=== PATIENT | male | born 1995 | race Hispanic/Latino ===

== ENCOUNTER 2019-04-16 11:37 | Emergency (ER) | payer BC, OTHER ==
--- NOTE | 2019-04-16 14:36 | ER ---
Nurse's Notes [facility] Name: Mike Cook Age: 23 yrs Sex: Male : 1995 Arrival Date: 04/16/2019 Time: 11:42 Bed 12 Private MD: Diagnosis: Acute pharyngitis Presentation: 04/16 11:45 Presenting complaint: Patient states: cough, congestion, had family member with strep. la1 Transition of care: patient was not received from another setting of care. Onset of symptoms was April 16, 2019. Risk Assessment: Do you want to hurt yourself or someone else? Patient reports no desire to harm self or others. Initial Sepsis Screen: Does the patient meet any 2 criteria? No. Patient's initial sepsis screen is negative. Does the patient have a suspected source of infection? No. Patient's initial sepsis screen is negative. Care prior to arrival: None. 11:45 Method Of Arrival: Ambulatory la1 11:45 Acuity: JUAN 4 la1 Historical: - Allergies: 11:45 No Known Allergies; la1 - PMHx: 11:45 None; la1 - Immunization history:: Adult Immunizations up to date. - Social history:: Smoking status: Patient/guardian denies using tobacco. - Ebola Screening: : No symptoms or risks identified at this time. - Family history:: not pertinent. Screenin:46 Abuse screen: Denies threats or abuse. Denies injuries from another. Nutritional rv screening: No deficits noted. Tuberculosis screening: No symptoms or risk factors identified. Fall Risk None identified. Assessment: 13:46 General: Appears in no apparent distress. comfortable, Behavior is calm, cooperative. rv Pain: Denies pain. Neuro: Level of Consciousness is awake, alert, obeys commands, Oriented to person, place, time, situation. EENT: Throat is clear. Derm: Skin is intact. Vital Signs: 11:53 Pulse 98; Resp 18; Temp 99.1; Pulse Ox 100% on R/A; la1 11:53 BP 106 / 77; la1 14:36 BP 112 / 76; Pulse 91; Resp 16; Pulse Ox 100% on R/A; rv ED Course: 11:42 Patient arrived in ED. as 11:45 Arm band placed on right wrist. la1 11:46 Triage completed. la1 13:32 Obie Balderrama MD is Attending Physician. [facility] 13:32 Dago Figueroa, RN is Primary Nurse. rv 13:46 Patient has correct armband on for positive identification. Bed in low position. Call rv light in reach. Side rails up X 1. Pulse ox on. 14:36 No provider procedures requiring assistance completed. Patient did not have IV access rv during this emergency room visit. Administered Medications: 14:47 Drug: Zithromax 500 mg Route: PO; rv 14:47 Follow up: Response: Medication administered at discharge. rv Outcome: 14:35 Discharge ordered by . [facility] 14:36 Discharged to home ambulatory. rv 14:36 Condition: good 14:36 Discharge instructions given to patient, Instructed on discharge instructions, follow up and referral plans. medication usage, Demonstrated understanding of instructions, follow-up care, medications, Prescriptions given X 2. 14:48 Patient left the ED. rv Signatures: Obie Balderrama MD MD cha Martinez, Amelia as Attema, Lee RN RN la1 Dago Figueroa, RADHA RN rv
--- NOTE | 2019-04-16 14:36 | EDPHYS ---
Physician Documentation [facility] Name: Mike Cook Age: 23 yrs Sex: Male : 1995 Arrival Date: 04/16/2019 Time: 11:42 Bed 12 Private MD: ED Physician Obie Balderrama HPI: 04/16 14:32 This 23 yrs old Male presents to ER via Ambulatory with complaints of Cold candace Symptoms. 14:32 sore throat. Onset: The symptoms/episode began/occurred 2 day(s) ago. Severity of candace symptoms: At their worst the symptoms were. The patient has experienced similar episodes in the past, a few times. Historical: - Allergies: 11:45 No Known Allergies; la1 - PMHx: 11:45 None; la1 - Immunization history:: Adult Immunizations up to date. - Social history:: Smoking status: Patient/guardian denies using tobacco. - Ebola Screening: : No symptoms or risks identified at this time. - Family history:: not pertinent. ROS: 14:32 Constitutional: Negative for fever, chills, and weight loss, Eyes: Negative for injury, candace pain, redness, and discharge, Neck: Negative for injury, pain, and swelling, Cardiovascular: Negative for chest pain, palpitations, and edema, Respiratory: Negative for shortness of breath, cough, wheezing, and pleuritic chest pain, Abdomen/GI: Negative for abdominal pain, nausea, vomiting, diarrhea, and constipation, Back: Negative for injury and pain, : Negative for injury, bleeding, discharge, and swelling, MS/Extremity: Negative for injury and deformity, Skin: Negative for injury, rash, and discoloration, Neuro: Negative for headache, weakness, numbness, tingling, and seizure, Psych: Negative for depression, anxiety, suicide ideation, homicidal ideation, and hallucinations, Allergy/Immunology: Negative for hives, rash, and allergies, Endocrine: Negative for neck swelling, polydipsia, polyuria, polyphagia, and marked weight changes, Hematologic/Lymphatic: Negative for swollen nodes, abnormal bleeding, and unusual bruising. 14:32 ENT: Positive for difficulty swallowing. Exam: 14:32 Constitutional: This is a well developed, well nourished patient who is awake, alert, candace and in no acute distress. Head/Face: Normocephalic, atraumatic. Eyes: Pupils equal round and reactive to light, extra-ocular motions intact. Lids and lashes normal. Conjunctiva and sclera are non-icteric and not injected. Cornea within normal limits. Periorbital areas with no swelling, redness, or edema. Neck: Trachea midline, no thyromegaly or masses palpated, and no cervical lymphadenopathy. Supple, full range of motion without nuchal rigidity, or vertebral point tenderness. No Meningismus. Chest/axilla: Normal chest wall appearance and motion. Nontender with no deformity. No lesions are appreciated. Cardiovascular: Regular rate and rhythm with a normal S1 and S2. No gallops, murmurs, or rubs. Normal PMI, no JVD. No pulse deficits. Respiratory: Lungs have equal breath sounds bilaterally, clear to auscultation and percussion. No rales, rhonchi or wheezes noted. No increased work of breathing, no retractions or nasal flaring. Abdomen/GI: Soft, non-tender, with normal bowel sounds. No distension or tympany. No guarding or rebound. No evidence of tenderness throughout. Back: No spinal tenderness. No costovertebral tenderness. Full range of motion. Male : Normal genitalia with no discharge or lesions. Skin: Warm, dry with normal turgor. Normal color with no rashes, no lesions, and no evidence of cellulitis. MS/ Extremity: Pulses equal, no cyanosis. Neurovascular intact. Full, normal range of motion. Neuro: Awake and alert, GCS 15, oriented to person, place, time, and situation. Cranial nerves II-XII grossly intact. Motor strength 5/5 in all extremities. Sensory grossly intact. Cerebellar exam normal. Normal gait. Psych: Awake, alert, with orientation to person, place and time. Behavior, mood, and affect are within normal limits. 14:32 ENT: Posterior pharynx: erythema, that is mild. Vital Signs: 11:53 Pulse 98; Resp 18; Temp 99.1; Pulse Ox 100% on R/A; la1 11:53 BP 106 / 77; la1 14:36 BP 112 / 76; Pulse 91; Resp 16; Pulse Ox 100% on R/A; rv MDM: 13:32 Patient medically screened. [facility] 14:34 Data reviewed: vital signs, nurses notes, lab test result(s). [facility] 04/16 11:47 Order name: Strep la1 04/16 12:28 Order name: Throat Culture EDMS Administered Medications: 14:47 Drug: Zithromax 500 mg Route: PO; rv 14:47 Follow up: Response: Medication administered at discharge. rv Disposition: 04/16/19 14:35 Discharged to Home. Impression: Acute pharyngitis. - Condition is Stable. - Discharge Instructions: Pharyngitis, Pharyngitis, [id number], Sore Throat, [id number]. - Prescriptions for Angella- D 12 Hour 60-120 mg Oral Tablet Sustained Release 12 hr - take 1 tablet by ORAL route every 12 hours As needed; 20 tablet. Zithromax Z- Wes 250 mg Oral Tablet - take 1 tablet by ORAL route as directed for 5 days Day 1 - take two (2) tablets one time. Day 2, 3, 4 , 5 take one (1) tablet once daily.; 6 tablet. - Medication Reconciliation Form, Thank You Letter, Antibiotic Education, Prescription Opioid Use form. - Follow up: Private Physician; When: 2 - 3 days; Reason: Recheck today's complaints, Continuance of care, Re-evaluation by your physician. - Problem is new. - Symptoms have improved. Signatures: Dispatcher [employer] EDWA Obie Balderrama MD MD cha Attema, Lee, RN RN la1 Dago Figueroa RN RN rv Corrections: (The following items were deleted from the chart) 14:48 14:35 04/16/2019 14:35 Discharged to Home. Impression: Acute pharyngitis. Condition is rv Stable. Forms are Medication Reconciliation Form, Thank You Letter, Antibiotic Education, Prescription Opioid Use. Follow up: Private Physician; When: 2 - 3 days; Reason: Recheck today's complaints, Continuance of care, Re-evaluation by your physician. Problem is new. Symptoms have improved. [facility]
[2019-04-16] MEDS ORDERED: AZITHROMYCIN 250 MG TAB ONE (14:40)
[2019-04-16 18:02] VITALS: TEMP 99.1; O2SAT 100
[2019-04-16 18:06] VITALS: BP 112/76
== END 2019-04-16 14:48 | disposition home or self-care (01) ==
LOC: ER 11:37
DX: J02.9 Acute pharyngitis, unspecified (principal)
CPT/HCPCS: 87070; 87081; 99283

== ENCOUNTER 2019-09-28 10:15 | Emergency (ER) | payer BC, MEDICAID, OTHER ==
--- NOTE | 2019-09-28 12:17 | EDPHYS ---
Physician Documentation [facility] Name: Mike Cook Age: 24 yrs Sex: Male : 1995 Arrival Date: 09/28/2019 Time: 10:19 Bed 15 Private MD: Flory Blanco ED Physician Obie Balderrama HPI: 09/27 12:05 This 24 yrs old Male presents to ER via Ambulatory with complaints of Cough, jmm Congestion, Sore Throat. 12:05 The patient presents with sore throat. Onset: The symptoms/episode began/occurred jmm gradually, 1.5 week(s) ago. Modifying factors: The symptoms are alleviated by nothing, the symptoms are aggravated by nothing. Associated signs and symptoms: Pertinent negatives chest pain, chills, cough, fever, nausea, shortness of breath. The patient has experienced similar episodes in the past. Historical: - Allergies: 10:33 No Known Allergies; ss - Home Meds: 10:33 None [Active]; ss - PMHx: 10:33 autism; ss - PSHx: 10:33 Tonsillectomy; Adenoids; ss - Immunization history:: Adult Immunizations unknown. - Social history:: Smoking status: Patient denies any tobacco usage or history of. ROS: 12:05 Constitutional: Negative for fever, chills, and weight loss, Cardiovascular: Negative jmm for chest pain, palpitations, and edema, Respiratory: Negative for shortness of breath, cough, wheezing, and pleuritic chest pain. 12:05 ENT: Positive for sore throat. 12:05 Respiratory: Negative for cough. 12:05 All other systems are negative. Exam: 12:05 Constitutional: This is a well developed, well nourished patient who is awake, alert, jmm and in no acute distress. Head/Face: atraumatic. Eyes: EOMI, no conjunctival erythema appreciated 12:05 Neck: Trachea midline, Supple Chest/axilla: Normal chest wall appearance and motion. Cardiovascular: Regular rate and rhythm. No edema appreciated 12:05 Abdomen/GI: Non distended, soft Back: Normal ROM Skin: General appearance color normal MS/ Extremity: Moves all extremities, no obvious deformities appreciated, no edema noted to the lower extremities Neuro: Awake and alert, normal gait Psych: Behavior is normal, Mood is normal, Patient is cooperative and pleasant 12:05 ENT: Posterior pharynx: erythema, that is mild. 12:05 Respiratory: the patient does not display signs of respiratory distress, Respirations: normal, Breath sounds: are clear throughout. Vital Signs: 10:33 BP 113 / 75; Pulse 97; Resp 16; Temp 98.8(TE); Pulse Ox 97% on R/A; Weight 122.47 kg; ss Height 5 ft. 11 in. (180.34 cm); Pain 4/10; 10:33 Body Mass Index 37.66 (122.47 kg, 180.34 cm) ss MDM: 10:[address] [facility] 12:16 Data reviewed: vital signs, nurses notes. Counseling: I had a detailed discussion with connor the patient and/or guardian regarding: the historical points, exam findings, and any diagnostic results supporting the discharge/admit diagnosis, lab results, the need for outpatient follow up, to return to the emergency department if symptoms worsen or persist or if there are any questions or concerns that arise at home. ED course: Patient is alert and non toxic in appearance in the ED. Patient is advised to follow up with pcp and otherwise given strict return precautions. Patient understood and agrees with the plan of care. . 09/27 11:18 Order name: Strep; Complete Time: 12:16 [facility] 09/27 12:16 Order name: Throat Culture EDSD Administered Medications: No medications were administered Disposition: 16:02 Co-signature as Attending Physician, Obie Balderrama MD I agree with the assessment and candace plan of care. Disposition: 09/28/19 12:17 Discharged to Home. Impression: Acute pharyngitis. - Condition is Stable. - Discharge Instructions: Pharyngitis. - Prescriptions for Amoxicillin 875 mg Oral Tablet - take 1 tablet by ORAL route every 12 hours for 10 days; 20 tablet. - Medication Reconciliation Form, Thank You Letter, Antibiotic Education, Prescription Opioid Use, Work release form form. - Follow up: Flory Blanco MD; When: 2 - 3 days; Reason: Recheck today's complaints, Continuance of care, Re-evaluation by your physician. Signatures: Dispatcher [employer] EDObie Rivas MD MD cha Mickail, Joel, PA PA Nel Hernandez RN RN ss Caba, Lolis, RN RN tw2 Corrections: (The following items were deleted from the chart) 12:24 12:17 09/28/2019 12:17 Discharged to Home. Impression: Acute pharyngitis. Condition is tw2 Stable. Forms are Medication Reconciliation Form, Thank You Letter, Antibiotic Education, Prescription Opioid Use. Follow up: Flory Blanco; When: 2 - 3 days; Reason: Recheck today's complaints, Continuance of care, Re-evaluation by your physician. connor
--- NOTE | 2019-09-28 12:17 | ER ---
Nurse's Notes [facility] Name: Mike Cook Age: 24 yrs Sex: Male : 1995 Arrival Date: 09/28/2019 Time: 10:19 Bed 15 Private MD: Flory Blanco Diagnosis: Acute pharyngitis Presentation: 09/27 10:31 Chief complaint: Patient states: sore throat x 1 week. Became worse suddenly yesterday. ss Denies fever. Reports slight cough just to clear throat. Coronavirus screen: Proceed with normal triage. Patient reports a cough. Patient denies shortness of breath or difficulty breathing. Patient denies measured and/or subjective temperature greater than 100.4F prior to today's visit. Patient denies travel on a cruise ship or to a country the [facility] currently lists as an affected area. Patient denies contact with known and/or suspected case of COVID-19. Ebola Screen: Patient denies exposure to infectious person. Patient denies travel to an Ebola-affected area in the 21 days before illness onset. Initial Sepsis Screen: Does the patient meet any 2 criteria? No. Patient's initial sepsis screen is negative. Does the patient have a suspected source of infection? No. Patient's initial sepsis screen is negative. Risk Assessment: Do you want to hurt yourself or someone else? Patient reports no desire to harm self or others. Onset of symptoms was September 21, 2019. 10:31 Method Of Arrival: Ambulatory ss 10:31 Acuity: JUAN 4 ss Historical: - Allergies: 10:33 No Known Allergies; ss - Home Meds: 10:33 None [Active]; ss - PMHx: 10:33 autism; ss - PSHx: 10:33 Tonsillectomy; Adenoids; ss - Immunization history:: Adult Immunizations unknown. - Social history:: Smoking status: Patient denies any tobacco usage or history of. Screenin:01 Abuse screen: Denies threats or abuse. Denies injuries from another. Nutritional ss screening: No deficits noted. Tuberculosis screening: Never had TB. Fall Risk None identified. Assessment: 11:01 General: Appears in no apparent distress. comfortable, Behavior is calm, cooperative, ss Denies fever, feeling ill, fatigue, chills. Pain: Complains of pain in throat Pain currently is 4 out of 10 on a pain scale. Quality of pain is described as sore Is continuous. Neuro: Level of Consciousness is awake, alert, obeys commands, Oriented to person, place, time, situation, Denies headache. Cardiovascular: Capillary refill < 3 seconds is brisk in bilateral fingers Patient's skin is warm and dry. Respiratory: Airway is patent Respiratory effort is even, unlabored, Respiratory pattern is regular, symmetrical, Breath sounds are clear bilaterally. GI: Patient currently denies diarrhea, nausea, vomiting. : No signs and/or symptoms were reported regarding the genitourinary system. EENT: Nares are clear Oral mucosa is moist. Throat is clear is reddened. Derm: Skin is intact, is healthy with good turgor, Skin is dry, Skin is pink, warm \T\ dry. normal. Musculoskeletal: Circulation, motion, and sensation intact. Range of motion: intact in all extremities, Swelling absent. 12:24 Reassessment: Patient appears in no apparent distress at this time. No changes from tw2 previously documented assessment. Patient and/or family updated on plan of care and expected duration. Pain level reassessed. Patient is alert, oriented x 3, equal unlabored respirations, skin warm/dry/pink. Vital Signs: 10:33 BP 113 / 75; Pulse 97; Resp 16; Temp 98.8(TE); Pulse Ox 97% on R/A; Weight 122.47 kg; ss Height 5 ft. 11 in. (180.34 cm); Pain 4/10; 10:33 Body Mass Index 37.66 (122.47 kg, 180.34 cm) ED Course: 10:19 Patient arrived in ED. mr 10:19 Flory Blanco MD is Private Physician. mr 10:25 [facility] jmm 10:25 Obie Balderrama MD is Attending Physician. jmm 10:32 Triage completed. ss 10:33 Arm band placed on right wrist. ss 11:00 Nel Chilel RN is Primary Nurse. ss 11:01 Patient has correct armband on for positive identification. Bed in low position. Call ss light in reach. 11:42 Strep Sent. ss 11:57 Primary Nurse role handed off by Nel Chilel RN tw2 11:57 Caba, Lolis, RN is Primary Nurse. tw2 12:17 Flory Blanco MD is Referral Physician. [facility] 12:24 No provider procedures requiring assistance completed. Patient did not have IV access tw2 during this emergency room visit. Administered Medications: No medications were administered Outcome: 12:17 Discharge ordered by . jm 12:24 Discharged to home ambulatory, with family. tw2 12:24 Condition: stable 12:24 Discharge instructions given to patient, family, Instructed on discharge instructions, follow up and referral plans. medication usage, Demonstrated understanding of instructions, follow-up care, medications, Prescriptions given X 1. 12:24 Patient left the ED. tw2 Signatures: Dalton Ruiz PA PA jmm Rivera, Mary mr Nel Chilel, RADHA RN Lolis Caba RN RN tw2
[2019-09-28 12:34] VITALS: BP 113/75; TEMP 98.8; O2SAT 97
== END 2019-09-28 12:24 | disposition home or self-care (01) ==
LOC: ER 10:15
DX: J02.9 Acute pharyngitis, unspecified (principal); F84.0 Autistic disorder
CPT/HCPCS: 87070; 87081; 99283

== ENCOUNTER 2019-10-30 22:45 | Emergency (ER) | payer MEDICAID, OTHER ==
[2019-10-30] MEDS ORDERED: DIPHENHYDRAMINE 25 MG TAB/CAP ONE (23:50)
[2019-10-30] MEDS ORDERED: TETANUS & DIPHTHERIA TOX,ADULT 0.5 ML VIAL ONE (23:50)
[2019-10-30] MEDS ORDERED: KETOROLAC 30 MG/ML INJ ONE (23:50)
--- NOTE | 2019-10-31 00:23 | ER ---
Nurse's Notes [facility] Name: Mike Cook Age: 24 yrs Sex: Male : 1995 Arrival Date: 10/30/2019 Time: 22:49 Bed 15 Private MD: Diagnosis: Insect bite (nonvenomous), left foot;Insect bite (nonvenomous), left lower leg-calf;Insect bite (nonvenomous) of left forearm;Insect bite (nonvenomous) of right forearm Presentation: 10/29 22:55 Chief complaint: Parent and/or Guardian states: Hes got some reddness and swelling to sg the top side of his left foot, he also has some red bumps, look like insect bites to the left arm and a bump on the back of the left leg lower calf area, pt denies fever, denies a visual of what might have bitten him per the pts mother. Coronavirus screen: Proceed with normal triage. Ebola Screen: Patient negative for fever greater than or equal to 101.5 degrees Fahrenheit, and additional compatible Ebola Virus Disease symptoms Patient denies exposure to infectious person. Patient denies travel to an Ebola-affected area in the 21 days before illness onset. No symptoms or risks identified at this time. Initial Sepsis Screen: Does the patient meet any 2 criteria? HR > 90 bpm. Does the patient have a suspected source of infection? Yes: Skin breakdown/wound. Risk Assessment: Do you want to hurt yourself or someone else? Patient reports no desire to harm self or others. Onset of symptoms was October 30, 2019. Care prior to arrival: None. 22:55 Method Of Arrival: Ambulatory 22:55 Acuity: JUAN 4 sg Triage Assessment: 23:00 Injury Description: Bite sustained to left foot caused by an unknown animal, is rr5 superficial. Historical: - Allergies: 22:58 No Known Allergies; sg - PMHx: 22:58 Autism; sg - PSHx: 22:58 Tonsillectomy; Adenoids; sg - Immunization history:: Adult Immunizations up to date. - Social history:: Smoking status: Patient denies any tobacco usage or history of. Screenin:00 Abuse screen: Denies threats or abuse. Denies injuries from another. Nutritional rr5 screening: No deficits noted. Tuberculosis screening: No symptoms or risk factors identified. Fall Risk None identified. Total Strickland Fall Scale indicates No Risk (0-24 pts). Assessment: 23:00 General: Appears in no apparent distress. comfortable, Behavior is calm, cooperative, rr5 appropriate for age. 23:00 Pain: Complains of pain in left foot Pain does not radiate. Pain currently is 9 out of rr5 10 on a pain scale. Quality of pain is described as aching, Pain began gradually, Is intermittent. Neuro: Level of Consciousness is awake, alert, obeys commands, Oriented to person, place, time, situation, Appropriate for age. Cardiovascular: Capillary refill < 3 seconds Patient's skin is warm and dry. Respiratory: Airway is patent Respiratory effort is even, unlabored, Respiratory pattern is regular, symmetrical. GI: No signs and/or symptoms were reported involving the gastrointestinal system. : No signs and/or symptoms were reported regarding the genitourinary system. EENT: No signs and/or symptoms were reported regarding the EENT system. Derm: Skin is intact, is healthy with good turgor, Skin is pink, warm \T\ dry. Skin temperature is warm Rash noted that is itchy, red, raised, urticaria, on left foot redness on left calf, bilateral forearm. Musculoskeletal: Swelling present in left foot. 10/30 00:00 Reassessment: Patient appears in no apparent distress at this time. No changes from rr5 previously documented assessment. Patient and/or family updated on plan of care and expected duration. Pain level reassessed. 00:31 Reassessment: Patient appears in no apparent distress at this time. Patient is alert, rr5 oriented x 3, equal unlabored respirations, skin warm/dry/pink. discharge instruction given and explained without complaints made. Vital Signs: 10/29 22:55 BP 142 / 88; Pulse 107; Resp 18; Temp 98.8; Pulse Ox 100% on R/A; Pain 0/10; sg 23:40 BP 109 / 78; Pulse 95; Resp 19; Pulse Ox 99% ; Pain 9/10; rr5 10/30 00:31 BP 121 / 75; Pulse 85; Resp 16; Pulse Ox 99% ; rr5 ED Course: 10/29 22:49 Patient arrived in ED. bp1 22:55 Arm band placed on. sg 22:57 Triage completed. sg 22:59 Sheldon Ricci NP is PHCP. pm1 22:59 Venancio Hobbs MD is Attending Physician. pm1 23:04 Antione Lockhart, RN is Primary Nurse. rr5 23:59 Foot Left 3 View XRAY In Process Unspecified. EDMS 10/30 00:05 Patient has correct armband on for positive identification. Bed in low position. Call rr5 light in reach. Adult w/ patient. 00:31 No provider procedures requiring assistance completed. Patient did not have IV access rr5 during this emergency room visit. Administered Medications: 10/29 23:50 Drug: Benadryl 25 mg Route: PO; rr5 10/30 00:32 Follow up: Response: No adverse reaction rr5 10/29 23:50 Drug: TORadol 60 mg Route: IM; Site: right gluteus; rr5 10/30 00:32 Follow up: Response: No adverse reaction rr5 10/29 23:51 Drug: Tetanus-Diphtheria Toxoid Adult 0.5 ml {Prompt Care Rn: One[employer]All. Exp: rr5 07/06/2021. Lot #: [id number]. } Route: IM; Site: left deltoid; 10/30 00:32 Follow up: Response: No adverse reaction rr5 Outcome: 00:22 Discharge ordered by MD. pm1 00:31 Discharged to home ambulatory, with family. rr5 00:31 Condition: stable 00:31 Discharge instructions given to patient, family, Instructed on discharge instructions, follow up and referral plans. medication usage, Demonstrated understanding of instructions, follow-up care, medications, Prescriptions given X 3. 00:34 Patient left the ED. rr5 Signatures: Dispatcher [employer] EDKY Jermaine Alvarado RN RN Sheldon Ricci, PUPIL PERSONNEL SERVICES DIRECTOR PUPIL PERSONNEL SERVICES DIRECTOR pm1 Antione Lockhart, RN RN rr5 [facility] Corrections: (The following items were deleted from the chart) 00:35 10/29 23:00 Derm: Skin is intact, is healthy with good turgor, Skin is pink, warm \T\ rr5 dry. Skin temperature is warm Rash noted that is itchy, red, raised, urticaria, on left foot rr5
--- NOTE | 2019-10-31 00:23 | EDPHYS ---
Physician Documentation [facility] Name: Mike Cook Age: 24 yrs Sex: Male : 1995 Arrival Date: 10/30/2019 Time: 22:49 Bed 15 Private MD: ED Physician Venancio Hobbs HPI: 10/29 23:26 This 24 yrs old Male presents to ER via Ambulatory with complaints of Left pm1 foot pain. 23:26 The patient presents with swelling. The complaints affect the dorsum of left foot. pm1 Context: The problem was sustained at home, resulted from an unknown cause, possible insect bites, the patient can fully bear weight, the patient is able to ambulate, Problem is a result from a previous injury: No. Onset: The symptoms/episode began/occurred last night. Modifying factors: The symptoms are alleviated by nothing. the symptoms are aggravated by movement. Associated signs and symptoms: The patient has no apparent associated signs or symptoms, Pertinent negatives fever. Treatment prior to arrival includes: no previous treatment. Severity of symptoms: in the emergency department the symptoms are unchanged. The patient has not experienced similar symptoms in the past. patient with bites to bilateral arms and left calf from last night. Bites on left foot feels painful but the other bites are itchy.. 23:26 Patient reports onset of pain after bowling. Patient uncertain of injury. History of pm1 autism. Historical: - Allergies: 22:58 No Known Allergies; sg - PMHx: 22:58 Autism; sg - PSHx: 22:58 Tonsillectomy; Adenoids; sg - Immunization history:: Adult Immunizations up to date. - Social history:: Smoking status: Patient denies any tobacco usage or history of. ROS: 23:29 Constitutional: Negative for fever, chills, and weight loss, Cardiovascular: Negative pm1 for chest pain, palpitations, and edema, Respiratory: Negative for shortness of breath, cough, wheezing, and pleuritic chest pain, Abdomen/GI: Negative for abdominal pain, nausea, vomiting, diarrhea, and constipation, Back: Negative for injury and pain. 23:29 Neuro: Negative for headache, weakness, numbness, tingling, and seizure. 23:29 MS/extremity: Positive for pain, swelling, of the dorsum of left foot, Negative for decreased range of motion, deformity. 23:29 Skin: Positive for wheals to left and right forearm, left calf, Negative for abscesses, cellulitis. Exam: 23:29 Constitutional: This is a well developed, well nourished patient who is awake, alert, pm1 and in no acute distress. Head/Face: Normocephalic, atraumatic. 23:29 Cardiovascular: Exam negative for acute changes, Rate: normal, Rhythm: regular, Pulses: no pulse deficits are appreciated. 23:29 Respiratory: Exam negative for acute changes, respiratory distress, shortness of breath. 23:29 Musculoskeletal/extremity: Extremities: grossly normal except: noted in the dorsum of left foot: swelling, tenderness, There is no evidence of abscess or cellulitis, ROM: intact in all extremities, Circulation is intact in all extremities. 23:29 Skin: Appearance: normal except for affected area, abscess, not appreciated, cellulitis, is not appreciated, lesion(s), probable a wheal is noted, located on the bilateral forearms, left calf. Vital Signs: 22:55 BP 142 / 88; Pulse 107; Resp 18; Temp 98.8; Pulse Ox 100% on R/A; Pain 0/10; sg 23:40 BP 109 / 78; Pulse 95; Resp 19; Pulse Ox 99% ; Pain 9/10; rr5 10/30 00:31 BP 121 / 75; Pulse 85; Resp 16; Pulse Ox 99% ; rr5 MDM: 10/29 22:59 Patient medically screened. pm1 10/30 00:20 ED course: X-ray interpretation by me: Negative left foot for fracture or dislocation. pm1 Swelling to dorsum of foot present. 00:20 Data reviewed: vital signs. Data interpreted: Pulse oximetry: on room air is 99 %. pm1 Interpretation: normal. 00:20 Counseling: I had a detailed discussion with the patient and/or guardian regarding: the pm1 historical points, exam findings, and any diagnostic results supporting the discharge/admit diagnosis, radiology results, the need for outpatient follow up, to return to the emergency department if symptoms worsen or persist or if there are any questions or concerns that arise at home. 10/29 23:26 Order name: Foot Left 3 View XRAY pm1 Administered Medications: 10/29 23:50 Drug: Benadryl 25 mg Route: PO; rr5 10/30 00:32 Follow up: Response: No adverse reaction rr5 10/29 23:50 Drug: TORadol 60 mg Route: IM; Site: right gluteus; rr5 10/30 00:32 Follow up: Response: No adverse reaction rr5 10/29 23:51 Drug: Tetanus-Diphtheria Toxoid Adult 0.5 ml {Pay Per Click Strategist: [employer]. Exp: rr5 07/06/2021. Lot #: [id number]. } Route: IM; Site: left deltoid; 10/30 00:32 Follow up: Response: No adverse reaction rr5 Disposition: 05:31 Co-signature as Attending Physician, Venancio Hobbs MD. 7 Disposition: 10/31/19 00:22 Discharged to Home. Impression: Insect bite (nonvenomous), left foot, Insect bite (nonvenomous), left lower leg - calf, Insect bite (nonvenomous) of left forearm, Insect bite (nonvenomous) of right forearm. - Condition is Stable. - Discharge Instructions: Insect Bite. - Prescriptions for Bactroban 2 % Topical Ointment - Apply to affected area 1 application by TOPICAL route every 12 hours; 30 gram. Bactrim DS 800- 160 mg Oral Tablet - take 1 tablet by ORAL route every 12 hours for 10 days; 20 tablet. Benadryl 25 mg Oral Capsule - take 1 capsule by ORAL route every 6 hours As needed; 30 tablet. - Medication Reconciliation Form, Thank You Letter, Antibiotic Education, Prescription Opioid Use form. - Follow up: Emergency Department; When: As needed; Reason: Worsening of condition. Follow up: Private Physician; When: 2 - 3 days; Reason: Recheck today's complaints, Continuance of care, Re-evaluation by your physician. - Problem is new. - Symptoms have improved. Signatures: Dispatcher [employer] EDMS Jermaine Alvarado RN RN sg Sheldon Ricci, [facility] ADMINISTRATOR pm1 Antione Lockhart RN RN rr5 Venancio Hobbs MD MD 7 Corrections: (The following items were deleted from the chart) 00:34 00:22 10/31/2019 00:22 Discharged to Home. Impression: Insect bite (nonvenomous), left rr5 foot; Insect bite (nonvenomous), left lower leg - calf; Insect bite (nonvenomous) of left forearm; Insect bite (nonvenomous) of right forearm. Condition is Stable. Forms are Medication Reconciliation Form, Thank You Letter, Antibiotic Education, Prescription Opioid Use. Follow up: Emergency Department; When: As needed; Reason: Worsening of condition. Follow up: Private Physician; When: 2 - 3 days; Reason: Recheck today's complaints, Continuance of care, Re-evaluation by your physician. Problem is new. Symptoms have improved. pm1
[2019-10-31 00:40] VITALS: TEMP 98.8
[2019-10-31 00:41] VITALS: O2SAT 99
[2019-10-31 00:43] VITALS: BP 121/75
--- NOTE | 2019-10-31 08:12 | RAD REPORT ---
EXAM DESCRIPTION: RAD - Foot Left 3 View - 10/30/2019 11:59 pm CLINICAL HISTORY: PAIN, soft tissue swelling, no trauma history known COMPARISON: No comparisons FINDINGS: No fracture, dislocation or periosteal reaction. No acute or destructive bony process. No acute bone or joint finding seen. Patient has a very small plantar spur. Soft tissues over the dorsum of the mid and distal foot are prominent but no air, foreign body or nadege cifications of the soft tissues. IMPRESSION: Left foot soft tissue swelling without acute bone or joint finding.
== END 2019-10-31 00:34 | disposition home or self-care (01) ==
LOC: ER 22:45
DX: S90.862A Insect bite (nonvenomous), left foot, initial encounter (principal); S80.862A Insect bite (nonvenomous), left lower leg, initial encounter; S50.862A Insect bite (nonvenomous) of left forearm, initial encounter; S50.861A Insect bite (nonvenomous) of right forearm, initial encounter; Z23 Encounter for immunization
CPT/HCPCS: 90471; 90714; 96372; 99283

== ENCOUNTER → 2023-07-27 | Emergency (ER) | payer BC, OTHER ==
[~2023-07-27] MED LIST: ACETAMINOPHEN 500 MG TAB ONE; IBUPROFEN 200 MG TAB PO ONE; IBUPROFEN 400 MG TAB ONE; ONDANSETRON 4 MG (ODT) TAB ONE
--- OUTSIDE RECORDS SUMMARY | 2023-07-27 00:06 | XMS REPORT | Continuity of Care Document ---
Author Name Unknown Address [address] [place] [address] [facility] thconnect Address [address] [place] [address] Care Team Providers Care Fleet Sales Manager Name Role Phone Pcp, Patient Does Not Have A Primary Care Physic dragan Doctor Unassigned, [place] Attending Clinician U navailable UNRULY HAY Attending Clinician Unavailable Magdaleno Sandoval Attending Clinician [phone] Unruly Hay MD Attending Clinician [phone] Lab, Adc Fam Pob I Attending Clinician Unavailab Clotilde Mcintyre Attending Clinician [phone] CLOTILDE ARMSTRONG Attending Clinician Unavailable Leona Brooks MD Attending Clinician [phone] LEONA BROOKS Attending Clinician Unavai MAGDALENO Nix Admitting Clinician Unavailable Payers Payer Name Policy Type Policy Number Effective Date Expirati on Date Source Problems Condition Name Condition Details Condition Category Status Onset Date Resolution Date Last Treatment Date Treating Clinician Comments Source No known active problems No known active problems Disease [facility] Allergies, Adverse Reactions, Alerts Allergy Name Allergy Type Status Severity Reaction(s) Onset Date Inactive Date Treating Clinician Comments Source NO KNOWN ALLERGIE S Drug Class Active [facility] Social History Social Habit Start Date Stop Date Quantity Comments Source Exposure to SARS-CoV-2 (event) Not sure [facility] SDOH Alcohol Std Drinks [facility] History SDOH Alcohol Binge [facility] History of Social function 2022-11-17 00:00:00 2022-11-17 00:00:00 [facility] Alcohol intake 2022-11-17 00:00:00 2022-11-17 00:00:00 Lifetime non-drinker (finding) [facility] Tobacco use and exposure 2020-12-17 00:00:00 2020-12-17 00:00:00 Smokeless tobacco non-user [facility] History SDOH Alcohol Frequency 2020-12-17 00:00:00 2020-12-17 00:00:00 1 [facility] Sex Assigned At 1995 00:00:00 1995 00:00:00 [facility] Smoking Status Start Date Stop Date Source Unknown if ever smoked [facility] Never smoked tobacco [facility] Medications Ordered Medication Name Filled Medication Name Start Date Stop Date Current Medication? Ordering Clinician Indication Dosage Frequency Signature (SIG) Comments Components Source iopamidol (ISOVUE 370-500 mL) injection 150 mL 11-17 09:30: 00 11-17 08:38 :00 No [id number] 150mL 150 mL, Intravenou s, ONCE, 1 dose, On Tue11/17/22 at 0430, Routine [facility] HYDROcodone -acetaminop hen (NORCO) 7.5-325 mg per tablet 11-17 00:00: 00 11-25 04:59 :00 No 4647 1{tbl} Take 1 tablet by mouth every 8 (eight) hours as needed for Pain for up to 7 days. Indication s: acute pain [facility] No known medications No Un sebastien [facility] No known medications No Un sebastien [facility] No known medications No Un sebastien [facility] Vital Signs Vital Name Observation Time Observation Value Comments S ourfany Systolic blood pressure 2022-11-17 11:45:00 105 mm[Hg] [place] [facility] Diastolic blood pressure 2022-11-17 11:45:00 65 mm[Hg] [facility] Heart rate 2022-11-17 11:45:00 116 /min [facility] Body temperature 2022-11-17 11:45:00 36.72 Regla [facility] Respiratory rate 2022-11-17 11:45:00 23 /min [facility] Oxygen saturation in Arterial blood by Pulse oximetry 2022-11-17 11:45:00 95 /min [facility] Body height 2022-11-17 07:36:15 180.3 cm [facility] Body weight 2022-11-17 07:36:15 117.935 kg [facility] BMI 2022-11-17 07:36:15 36.26 kg/m2 [facility] Systolic blood pressure 2020-12-17 15:56:00 121 mm[Hg] [facility] Diastolic blood pressure 2020-12-17 15:56:00 68 mm[Hg] [facility] Heart rate 2020-12-17 15:56:00 87 /min [facility] Body temperature 2020-12-17 15:56:00 35.67 Regla [facility] Body height 2020-12-17 15:56:00 180.3 cm [facility] Body weight 2020-12-17 15:56:00 132.45 kg [facility] BMI 2020-12-17 15:56:00 40.73 kg/m2 [facility] Procedures Procedure Date / Time Performed Performing Clinician Source AUTHORIZATION FOR RELEASE OF PHI 2022-12-25 05:01:00 Doctor Unassigned, [place] [facility] URINE DRUG (IMMUNOASSAY) - COMPREHENSIVE DRUG SCREEN W/O REFLEX 2022-11-17 09:51:00 Unruly Hay [facility] URINALYSIS 2022-11-17 09:51:00 Unruly Hay [facility] ABORH CONFIRMATION (LAB ONLY) 2022-11-17 08:59:00 Magdaleno Moore [facility] LIPASE 2022-11-17 07:41:00 Unruly Hay [facility] TROPONIN I 2022-11-17 07:41:00 Unruly Hay [facility] COMP. METABOLIC PANEL (37494) 2022-11-17 07:41:00 Unruly Hay [facility] ETHANOL 2022-11-17 07:41:00 Unruly Hay [facility] CBC WITH DIFF 2022-11-17 07:41:00 [facility] / INR 2022-11-17 07:41:00 Renny Hay [facility] ACTIVATED PARTIAL THRMPLAS [place] 2022-11-17 07:41:00 Unruly Hay [facility] HB ABO GROUPING 2022-11-17 07:41:00 [facility]OMATED[facility] 2022-11-17 07:25:00 Lamont Moore [facility] ASSIGNMENT OF BENEFITS 2020-12-17 15:33:29 Docto r Unassigned, [place] [facility] Encounters Start Date/Time End Date/Time Encounter Type Admission Type Attending [facility] Care Facility Care Department Encounter ID Source 2022-12-25 00:00:00 2022-12-25 00:00:00 Orders Only Doctor Unassigned, [place] [facility] 1..840.114 [id number] [facility] 2022-11-17 02:26:00 2022-11-17 06:58:00 Emergency X UNRULY HAY [facility] ERT [id number] [facility] 2022-11-17 02:26:00 2022-11-17 06:58:00 Emergency Magdaleno Moore Donnell [facility] 1..840.114 [id number] [facility] 2020-12-25 08:42:05 2020-12-25 09:02:05 Wearing Apparel Shaker Visit Lab, [facility]ob [facility] 1..840.114 [id number] [facility] 2020-12-25 09:00:00 2020-12-25 09:00:00 Outpatient CLOTILDE [facility] [id number] [facility] 2020-12-17 10:35:35 2020-12-17 11:05:35 Office Visit Leona Brooks [facility] One 1..840.114 [id number] [facility] 2020-12-17 11:00:00 2020-12-17 11:00:00 Outpatient Bryan LEONA BROOKS [facility] [id number] [facility] 2020-12-17 00:00:00 2020-12-17 00:00:00 Orders Only Doctor Unassigned, [place] [facility] 1..840.114 [id number] [facility] Results Test Description Test Time Test Comments Results Result Co mments Source [facility] - [facility] [id number] 07:49:00* Test Item Value Reference Range Interpretation Comme nts ABO & RH (test code = 20) B Positive IAT (test code = 1185) Negative [facility]2022-11-17 07:26:23* Test Item Value Reference Range Interpretation Comme nts POCT GLU (test code = 3726242143) 103 mg/dL 70-110 Lab Interpretation (test cod e = 10662-1) Normal [facility]
[2023-07-27 02:06] LABS: SARS-CoV-2 Antigen Rapid Res Negative (Negative)
--- NOTE | 2023-07-27 02:52 | ER ---
Nurse's Notes [facility] Name: Mike Cook Age: 27 yrs Sex: Male : 1995 Arrival Date: 07/27/2023 Time: 00:03 Bed 16 Private MD: Diagnosis: Influenza A Presentation: 07/26 00:13 Chief complaint: Patient states: I had a fever and cough and dizziness, coughing jb4 started 2 days ago, dizziness and fever started today. Coronavirus screen: At this time, the client does not indicate any symptoms associated with coronavirus-19. Ebola Screen: No symptoms or risks identified at this time. 00:13 Method Of Arrival: Ambulatory jb4 00:13 Initial Sepsis Screen: Does the patient meet any 2 criteria? No. Patient's initial rv sepsis screen is negative. Does the patient have a suspected source of infection? No. Patient's initial sepsis screen is negative. 00:13 Risk Assessment: Do you want to hurt yourself or someone else? Patient reports no rv desire to harm self or others. Onset of symptoms was July 27, 2023. 00:13 Acuity: JUAN 4 rv Triage Assessment: 03:03 Headache History: Denies prior headaches. General: Appears comfortable. Pain: Pain rv began gradually, Also complains of no other associated symptoms. Pain: Complains of pain in HEAD. Historical: - Allergies: 03:01 No Known Allergies; rv - Home Meds: 03:01 None [Active]; rv - PMHx: 03:01 Autism; rv - PSHx: 03:01 None; rv - Immunization history:: Adult Immunizations up to date. - Social history:: Smoking status: Patient denies any tobacco usage or history of. - Family history:: not pertinent. Screenin:02 [facility] ED Fall Risk Assessment (Adult) History of falling in the last 3 months, rv including since admission No falls in past 3 months (0 pts) Score/Fall Risk Level 0 - 2 = Low Risk Oriented to surroundings, Maintained a safe environment, Educated pt \T\ family on fall prevention, incl call for assistance when getting out of bed, Assessed \T\ reinforced patient's understanding of fall precautions. Abuse screen: Denies threats or abuse. Denies injuries from another. Nutritional screening: No deficits noted. Tuberculosis screening: No symptoms or risk factors identified. Assessment: 00:50 Reassessment: Patient is alert, oriented x 3, equal unlabored respirations, skin as9 warm/dry/pink. patient states that he has fever, nausea, cough, dizziness that started in the afternoon. 00:50 General: Appears in no apparent distress. Behavior is calm, cooperative, appropriate as9 for age. Pain: Complains of pain in headache Pain currently is 3 out of 10 on a pain scale. Neuro: Level of Consciousness is awake, alert, obeys commands, Oriented to person, place, time, situation, Appropriate for age. Cardiovascular: Capillary refill < 3 seconds Patient's skin is warm and dry. Respiratory: Airway is patent Respiratory effort is even, unlabored, Respiratory pattern is regular, symmetrical. GI: No signs and/or symptoms were reported involving the gastrointestinal system. : No signs and/or symptoms were reported regarding the genitourinary system. EENT: No signs and/or symptoms were reported regarding the EENT system. Derm: Skin is pink, warm \T\ dry. Musculoskeletal: Circulation, motion, and sensation intact. Range of motion: intact in all extremities. Vital Signs: 00:48 BP 108 / 63; Pulse 120; Resp 19; Temp 100; Pulse Ox 96% on R/A; vk 01:15 BP 111 / 72; Pulse 118; Resp 20; Pulse Ox 97% on R/A; as9 02:14 Temp 101.3; rv Arielle Coma Score: 02:51 Eye Response: spontaneous(4). Motor Response: obeys commands(6). Verbal Response: sp4 oriented(5). Total: 15. ED Course: 00:06 Patient arrived in ED. jj6 00:24 [facility] Dow[facility] kb 00:24 Jhoan Wagner MD is Attending Physician. kb 01:26 SARS-COV-2 Antigen Rapid Sent. as9 01:26 Flu Sent. as9 03:01 Triage completed. rv 03:02 No provider procedures requiring assistance completed. Patient did not have IV access rv during this emergency room visit. 03:02 Arm band placed on right wrist. rv 03:02 Patient has correct armband on for positive identification. rv Administered Medications: 01:08 Drug: Ondansetron PO 4 mg PO once Route: PO; as9 03:03 Follow up: Response: No adverse reaction rv 01:08 Drug: Ibuprofen PO 600 mg PO once Route: PO; as9 03:03 Follow up: Response: No adverse reaction rv 02:24 Drug: Acetaminophen PO 1000 mg PO once Route: PO; rv 03:03 Follow up: Response: No adverse reaction rv Medication: 03:03 VIS not applicable for this client. rv Outcome: 02:52 Discharge ordered by MD. thomas 03:03 Discharged to home ambulatory, with family, rv 03:03 Condition: good 03:03 Discharge instructions given to patient, family, Instructed on discharge instructions, follow up and referral plans. medication usage, Demonstrated understanding of instructions, follow-up care, medications, Prescriptions given X 2, 03:04 Patient left the ED. rv Signatures: Consuelo Dowd, HECTOR STRATTONP-Leo Chaevz, RN RN jb4 Dago Figueroa RN RN rv Rossi Davis Sergey, MD MD sp4 Evonne Finch Aaron, RN RN as9
--- NOTE | 2023-07-27 02:53 | EDPHYS ---
Physician Documentation [facility] Name: Mike Cook Age: 27 yrs Sex: Male : 1995 Arrival Date: 07/27/2023 Time: 00:03 Bed 16 Private MD: ED Physician Jhoan Wagner HPI: 07/26 00:30 This 27 yrs old Male presents to ER via Unassigned with complaints of kb Headache, Nausea, Dizziness. 00:31 Pt is a 27 year old male who presents for cough, fever, dizziness, and nausea that kb started 2 days ago. Denies shortness of breath, vomiting, diarrhea, chest pian, abd pain. . Historical: - Allergies: 03:01 No Known Allergies; rv - Home Meds: 03:01 None [Active]; rv - PMHx: 03: Autism; rv - PSHx: 03:01 None; rv - Immunization history:: Adult Immunizations up to date. - Social history:: Smoking status: Patient denies any tobacco usage or history of. - Family history:: not pertinent. ROS: 00:31 Cardiovascular: Negative for chest pain, palpitations, and edema, kb 00:31 Constitutional: Positive for fever, 00:31 Respiratory: Positive for cough, 00:31 Abdomen/GI: Positive for nausea, 00:31 Neuro: Positive for dizziness, 00:31 All other systems are negative, Exam: 00:31 Constitutional: This is a well developed, well nourished patient who is awake, alert, kb and in no acute distress. Head/Face: Normocephalic, atraumatic. ENT: Moist Mucous membranes Cardiovascular: Regular rate Respiratory: Respirations even and unlabored. No increased work of breathing. Talking in full sentences Abdomen/GI: Soft, non-tender. No distention Skin: Warm, dry with normal turgor. Normal color. MS/ Extremity: Pulses equal, no cyanosis. Neurovascular intact. Full, normal range of motion. Neuro: Awake and alert, GCS 15, oriented to person, place, time, and situation. Moves all extremities. Normal gait. Vital Signs: 00:48 BP 108 / 63; Pulse 120; Resp 19; Temp 100; Pulse Ox 96% on R/A; vk 01:15 BP 111 / 72; Pulse 118; Resp 20; Pulse Ox 97% on R/A; as9 02:14 Temp 101.3; rv Arielle Coma Score: 02:51 Eye Response: spontaneous(4). Motor Response: obeys commands(6). Verbal Response: sp4 oriented(5). Total: 15. MDM: 00:24 Patient medically screened. kb 00:30 Data reviewed: vital signs, nurses notes. kb 00:34 Differential Diagnosis: Other flu, covid, uri, viral syndrome. kb 00:49 Transition of care: After a detail discussion of the patient's case, care is kb transferred to Jhoan Wagner MD. 02:51 Differential diagnosis: migraine, sinusitis, tension headache, vasomotor headache, sp4 Influenza. Consideration of Admission/Observation Escalation of care including admission/observation considered. Response to treatment: the patient's symptoms have markedly improved after treatment. ED course: Referral influenza A. ED course: Will discharge home with Tamiflu and Zofran. Will advise Tylenol and ibuprofen at the same time as needed for headache and fever. 07/26 00:25 Order name: Flu; Complete Time: 02:46 kb 07/26 00:25 Order name: SARS-COV-2 Antigen Rapid; Complete Time: 02:46 kb Administered Medications: 01:08 Drug: Ondansetron PO 4 mg PO once Route: PO; as9 03:03 Follow up: Response: No adverse reaction rv 01:08 Drug: Ibuprofen PO 600 mg PO once Route: PO; as9 03:03 Follow up: Response: No adverse reaction rv 02:24 Drug: Acetaminophen PO 1000 mg PO once Route: PO; rv 03:03 Follow up: Response: No adverse reaction rv Disposition: 07:13 Co-signature as Attending Physician, Jhoan Wagner MD I agree with the assessment sp4 and plan of care. I reviewed the patient's care provided by Advanced Practice Provider \T\ agree w/ the diagnosis \T\ care plan. I personally saw the pt \T\ performed a substantive portion of the visit, incldng all aspects of the (History/Exam/Medical Decision Making). Disposition Summary: 07/27/23 02:52 Discharge Ordered Notes: Work release for 5 days Location: Home sp4 Problem: new sp4 Symptoms: have improved sp4 Condition: Stable sp4 Diagnosis - Influenza A sp4 Followup: sp4 - With: Private Physician - When: 7 - 10 days - Reason: Recheck today's complaints Discharge Instructions: - Discharge Summary Sheet sp4 - Influenza, Adult, [id number] sp4 Forms: - Work release form jb4 - Patient Portal Instructions sp4 Prescriptions: - Tamiflu 75 mg Oral capsule - take 1 tablet ORAL route every 12 hours for 5 days; 10 tablet; Refills: 0, sp4 Product Selection Permitted - ondansetron 8 mg Oral Tablet,disintegrating - take 1 tablet ORAL route every 8 hours PRN nausea; 30 tablet; Refills: 0, sp4 Product Selection Permitted Signatures: Dispatcher [employer] EDConsuelo Cortes, OPERATION MANAGER-C OPERATION MANAGER-Rafaelb Dago Figueroa, RN RN Jhoan Victoria MD MD sp4 Remy Anthony RN RN as9
== END ==
LOC: ER 00:03
DX: J10.1 Influenza due to other identified influenza virus with other respiratory manifestations (principal); Z11.52 Encounter for screening for COVID-19; F84.0 Autistic disorder
CPT/HCPCS: 36415; 87804 ×2; 87811; Q0162; 99284